=== PATIENT | male | born 1965 | race Caucasian/White ===

== ENCOUNTER 2017-09-11 19:28 | Emergency (ER) | payer OTHER ==
[~2017-09-11] VITALS: Ht 172.7 cm; Wt 85.5 kg
[2017-09-11 19:28] VITALS: BP 129/83
--- NOTE | 2017-09-12 05:49 | REP ---
RIGHT HAND: CLINICAL: Trauma. Foreign body. TECHNIQUE: AP, lateral, bilateral oblique views of the right hand. FINDINGS: Focal swelling surrounds the fifth digit proximal phalanx. No subcutaneous emphysema or radiodense foreign body identified. No acute fracture or dislocation appreciated. Skeletal structures and joint spaces demonstrate moderate age related degenerative change particularly involving the interphalangeal joints. IMPRESSION: Focal swelling surrounds the fifth proximal phalanx. No acute fracture or dislocation. No foreign body or subcutaneous emphysema. Signed by Burton Collins MD 09/17/2017 12:05 A
== END 2017-09-11 21:51 | disposition home or self-care (01) ==
LOC: M ED 19:28
DX: D36.7 Benign neoplasm of other specified sites (principal); M19.90 Unspecified osteoarthritis, unspecified site; Z87.891 Personal history of nicotine dependence; Z98.890 Other specified postprocedural states

== ENCOUNTER → 2017-09-13 | Outpatient (CLI) | payer OTHER ==
[~2017-09-13] MED LIST: DOXY100C37 PO; TRAM50TA2 PO
--- NOTE | 2017-09-13 19:55 | REP ---
NONVASCULAR EXTREMITY ULTRASOUND: CLINICAL: Focal swelling at the 5th digit related to recent injury and foreign body. TECHNIQUE: Real-time wade scale and color evaluation using linear high frequency transducer. FINDINGS: Directed ultrasound examination at the point of maximal tenderness and swelling demonstrates a 19.6 x 12.2 x 11.5 mm heterogenous hypoechoic mass like area with a linear well demarcated hyperechoic small central focus with posterior shadowing. Findings are most compatible with the given history of central foreign body material and surrounding inflammatory changes. IMPRESSION: Findings compatible with small foreign body and surrounding inflammatory changes. Signed by Burton Collins MD 09/14/2017 08:12 A
== END ==
LOC: M RAD 10:35
PROVIDERS: ATTEND Physician Assistant
DX: S60.456A Superficial foreign body of right little finger, initial encounter (principal); X58.XXXA Exposure to other specified factors, initial encounter; Y92.89 Other specified places as the place of occurrence of the external cause; Y93.89 Activity, other specified; Y99.8 Other external cause status

== ENCOUNTER 2017-09-16 10:02 | Emergency (ER) | payer OTHER ==
[~2017-09-16] VITALS: Ht 172.7 cm; Wt 85.5 kg
[2017-09-16] MEDS ORDERED: LIDOCAINE 2% MDV 20 ML VIAL SC ONE (11:15)
[2017-09-16] MEDS ORDERED: DOXY100C37 PO (12:01)
[2017-09-16] MEDS ORDERED: TRAM50TA2 PO (12:04)
[2017-09-16 12:19] VITALS: BP 144/96
== END 2017-09-16 12:23 | disposition home or self-care (01) ==
LOC: M ED 10:02
DX: L02.511 Cutaneous abscess of right hand (principal); L03.113 Cellulitis of right upper limb; S60.456A Superficial foreign body of right little finger, initial encounter; W45.8XXA Other foreign body or object entering through skin, initial encounter; Y92.89 Other specified places as the place of occurrence of the external cause; Y93.89 Activity, other specified; Y99.8 Other external cause status; Z87.891 Personal history of nicotine dependence; Z98.61 Coronary angioplasty status